=== PATIENT | male | born 1960 | race African-American/Black ===

== ENCOUNTER 2020-04-24 21:45 | Observation (INO) ==
[2020-04-24] MEDS ORDERED: MORPHINE 4 MG/1 ML VIAL IV STA (22:44)
[2020-04-24] MEDS ORDERED: LABETALOL 20 MG/4 ML SYRINGE IV STA (22:44)
[2020-04-24] MEDS ORDERED: ONDANSETRON 4 MG/2 ML VIAL IV ONE (22:44)
[2020-04-24] MEDS ORDERED: MORPHINE 4 MG/1 ML VIAL IV PRN (23:02)
[2020-04-24] MEDS ORDERED: ACETAMINOPHEN 325 MG TABLET PO PRN (23:02)
[2020-04-24] MEDS ORDERED: ONDANSETRON 4 MG/2 ML VIAL IV PRN (23:02)
[2020-04-24] MEDS ORDERED: ALBUTEROL/IPRATROPIUM 3 ML NEB RESP TX PRN (23:08)
[2020-04-25] MEDS: DEXTROSE 5% NACL 0.45% 1,000 ML IV SCH ×2 (06:02→14:49)
[2020-04-25 06:14] LABS: Basophils # 0.1 10*3/uL (0.0-0.2); Basophils % 0.8 % (0.0-0.8); Eosinophils # 0.1 10*3/uL (0.0-0.87); Eosinophils % 0.8 % (0.00-10.9); Hematocrit 40.5 VOL% (42.0-52.0); Hemoglobin 14.2 GM/DL (14.0-18.0); Immature Granulocytes % 0.3 %; Immature Granulocytes Absolute 0.03 #; Lymphocytes # 2.4 10*3/uL (1.4-4.0); Lymphocytes % 23.4 % (21.2-54.2); Mean Corpuscular HGB Conc 35.1 GM/DL (32-36); Mean Corpuscular Volume 89.8 FL (87-102); Mean Platelet Volume 9.2 FL (9.6-12.0); Neutrophils % 67.7 % (38.7-73.9); Platelet Count 240 T/CUMM (130-400); Red Blood Count 4.51 MC/CUMM (3.8-5.5); Red Cell Distribution Width 14.1 % (9.3-17.3); White Blood Count 10.4 T/CUMM (4-12)
[2020-04-25 06:38] LABS: Albumin 3.7 G/DL (3.4-5.0); Bilirubin,Total 1.4 MG/DL (0.2-1.0); Calcium 8.7 MG/DL (8.5-10.1); Potassium 2.7 MMOL/L (3.5-5.1); Total Protein 7.4 G/DL (6.4-8.3)
[2020-04-25] MEDS: POTASSIUM CHLORIDE RIDER 10 MEQ in PREMIX 1 EACH IV SCH ×6 (08:57→14:48)
[2020-04-25] MEDS ORDERED: PANTOPRAZOLE 40 MG TABLET PO SCH (09:00)
[2020-04-25] MEDS ORDERED: METOPROLOL SUCCINATE XL 25 MG TABLET PO SCH (09:00)
[2020-04-25] MEDS ORDERED: LOSARTAN/HCTZ 50-12.5 MG TABLET PO SCH (09:00)
[2020-04-25] MEDS ORDERED: VERAPAMIL SR 240 MG TABLET PO SCH (09:00)
[2020-04-25 16:38] VITALS: BP 130/85
== END 2020-04-25 19:23 | disposition home or self-care (01) ==
LOC: EDUNIT# → EDBD → N.EDINP 21:45 → N.ED 21:45 → N.EDINP 04-25 00:19 → N.TELEN 04-25 00:27
PROVIDERS: ADMIT Student in an Organized Health Care Education/Training Program; ATTEND Student in an Organized Health Care Education/Training Program